=== PATIENT | female | born 1980 ===

== ENCOUNTER → 2019-02-13 21:33 | Outpatient (REF) | payer OTHER, SELFPAY ==
[2019-02-14 02:25] LABS: Free T4, Direct Thyroxine 1.28 ng/dL (0.78-2.19)
[2019-02-14 02:40] LABS: Ferritin 5.5 ng/mL (6.27-137); Thyroid Stimulating Hormone 2.26 uIU/mL (0.47-4.68)
[2019-02-15 17:06] LABS: Anti Thyroglobulin Antibody 1 IU/mL (< 2); Thyroid Peroxidase Antibodies 1 IU/mL (< 9)
== END ==
LOC: LAB 21:33
PROVIDERS: Visit Provider Naturopath
DX: E06.3 Autoimmune thyroiditis (principal)
CPT/HCPCS: 36415; 82728; 84439; 84443; 84481; 86376; 86800